=== PATIENT | female | born 1975 | race Hispanic/Latino ===

== ENCOUNTER 2018-04-22 13:52 | Emergency (ER) | payer OTHER ==
[2018-04-22 13:57] VITALS: BP 146/87; PULSE 82; RESP 18; TEMP 98.4; O2SAT 100; BMI 33.6
[2018-04-22] MEDS ORDERED: Silver Sulfadiazine 1% Cream (25 gm) TP STA (14:23)
[2018-04-22] MEDS ORDERED: Oxycodone/Acetaminophen 5/325 mg Tab PO STA (14:23)
[2018-04-22] MEDS ORDERED: TDAP Vaccine 0.5 mL Syr IM ONE (14:23)
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
== END 2018-04-22 15:00 | disposition home or self-care (01) ==
LOC: ED 13:52
DX: T22.211A Burn of second degree of right forearm, initial encounter (principal); X10.1XXA Contact with hot food, initial encounter; Z23 Encounter for immunization